=== PATIENT | male | born 1970 | race Caucasian/White ===

== ENCOUNTER 2017-05-11 08:57 | Emergency (ER) | payer OTHER ==
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
[2017-05-11 09:05] VITALS: BP 103/72
== END 2017-05-11 11:25 | disposition home or self-care (01) ==
LOC: DL.ED 08:57
DX: S83.411A Sprain of medial collateral ligament of right knee, initial encounter (principal); V94.9XXA Unspecified water transport accident, initial encounter
CPT/HCPCS: 73562-RT; 99283